=== PATIENT | female | born 2000 | race Caucasian/White ===

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

== ENCOUNTER 2020-01-29 18:19 | Emergency (ER) | payer SELFPAY ==
--- NOTE | 2020-01-29 18:31 | ED.PDOC ---
History of Present Illness - General Time Seen by Provider: 01/29/20 18:21 Source: patient, RN notes reviewed, Vital Signs reviewed - History of Present Illness Initial Comments: 19 yo comes in today because an hour ago while in the shower she notice her IUD string was hanging out. Has also been having pain. IUD has been in for one year. Timing/Duration: this morning Quality: moderate, cramping Onset Location: vaginal Radiation: none Activites at Onset: other - showering Sexual intercourse history: single partner Improving Factors: nothing Associated Symptoms: denies symptoms Allergies/Adverse Reactions: Allergies NO KNOWN ALLERGY Allergy (Verified 08/22/18 01:28) Review of Systems - Review of Systems Constitutional: Denies: chills, fever EENTM: Denies: blurred vision Respiratory: Denies: cough, short of breath Cardiology: Denies: chest pain, palpitations Gastrointestinal/Abdominal: Denies: abdominal pain, diarrhea, nausea, vomiting Genitourinary: States: pain. Denies: dysuria, frequency, hematuria Musculoskeletal: States: see HPI Skin: Denies: dryness Neurological: Denies: headache, numbness, tingling, tremors Endocrine: Denies: unexplained weight gain, unexplained weight loss Hematologic/Lymphatic: Denies: blood clots, easy bleeding, easy bruising Past Medical History (General) - Patient Medical History Hx Seizures: No Hx Stroke: No Hx Dementia: No Hx Asthma: No Hx of COPD: No Hx Cardiac Disorders: No Hx Congestive Heart Failure: No Hx Pacemaker: No Hx Hypertension: No Hx Thyroid Disease: No Hx Diabetes: No Hx Gastroesophageal Reflux: No Hx Renal Disease: No Hx Cancer: No Hx of HIV: No Hx Hepatitis C: No Hx MRSA: No - Vaccination History Hx Tetanus, Diphtheria Vaccination: Yes Hx Influenza Vaccination: No - Social History Hx Tobacco Use: Yes Hx Alcohol Use: No Hx Substance Use: No - Female History Hx Last Menstrual Period: 12/07/17 Patient : No Expected Date of Delivery:: 09/13/18 Family Medical History - Family History Mother Family History: No Known Living Status: Still Living Physical Exam - Physical Exam General Appearance: Alert, Comfortable, No apparent distress, Well Developed, Well Groomed, Well Hydrated, Well Nourished Eyes, Ears, Nose, Throat Exam: PERRL/EOMI, normal ENT inspection Neck: non-tender, full range of motion, supple Cardiovascular/Respiratory: regular rate, rhythm, normal peripheral pulses, normal breath sounds, no respiratory distress Gastrointestinal/Abdominal: normal bowel sounds, non tender, soft Rectal Exam: deferred Pelvic Exam: external exam normal, bimanual exam normal, no cerv. motion tender, no masses, blood, other - no cmt, no cervicitis, IUD half way out, IUD pulled out. mild bleeding noted at os Back Exam: normal inspection Extremity: normal range of motion, non-tender, normal inspection, no pedal edema, normal capillary refill Neurologic: no motor/sensory deficits, alert, normal mood/affect, oriented x 3 Skin Exam: normal color, warm/dry Progress - Progress Progress: IUD was removed without difficult. abdomen soft, nontender. repeat bp 120/85, hr 80. No evidence of uterine injury or rupture at this time. The data reviewed when caring for this patient included: nurse notes, etc. The history and assessments from nurses notes were reviewed and considered. My assessment and the results of testing completed here in the ED were discussed with the patient/family. All questions were answered, and they express understanding of my assessment and the plan. 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 Strict return precautions given including but not limited to worsening pain, worsening or continued vaginal bleeding, fever or as needed, dizziness, weakness. recommend back up contraception. Zunilda Grace DO #[id number] 01/29/20 20:38 Departure - Departure Clinical Impression: IUD complication Qualifiers: Device complication type: mechanical Mechanical complication type: displacement Encounter type: initial encounter Qualified Code(s): T83.32XA - Displacement of intrauterine contraceptive device, initial encounter Time of Disposition: 18:50 Disposition: Discharge to Home or Self Care Departure Forms: ED Discharge - Pt. Copy, Patient Portal Self Enrollment Instructions: Intrauterine Device Removal Referrals: MARLENE GORDON [Primary Care Provider] - 1-5 Days
[2020-01-29] MEDS ORDERED: IBUPROFEN 200 MG TAB PO ONE (18:36)
[2020-01-29 18:44] VITALS: TEMP 98.1
[2020-01-29 20:05] VITALS: BP 97/73; O2SAT 98
== END 2020-01-29 19:45 | disposition home or self-care (01) ==
LOC: ER 18:19
DX: T83.32XA Displacement of intrauterine contraceptive device, initial encounter (principal); Z87.891 Personal history of nicotine dependence; Y84.8 Other medical procedures as the cause of abnormal reaction of the patient, or of later complication, without mention of misadventure at the time of the procedure; Y82.8 Other medical devices associated with adverse incidents